=== PATIENT | female | born 1965 | race Caucasian/White ===

== ENCOUNTER → 2018-01-30 | Outpatient (CLI) | payer BC ==
[2014-07-12 16:14] VITALS: BMI 38.8
[~2018-01-30] MED LIST: AMIT-106 PO; ASPI-719 PO; ASPI-757 PO; BIS10S PR; BUP75 PO; BUPR-127 PO; BUPROPION; CEL100 PO; CELE-1 PO; CEP500 PO; CHOL100052 PO; CYC10 PO; CYCL10TA29 FT; CYCL10TA29 PO; DIAZ2TAB74 PO; DIC50 PO; ERGO400T9 PO; FERR-1 PO; FISH OIL1 CAP PO; FLUO40CA70 PO; FLUO40CA76 PO; GAB300 PO; HYDR-2954 PO; HYDR-3078 PO; HYDR-6016 PO; HYDR-653 PO; HYDR-654 PO; IBU800 PO; IBUP600T22 PO; KET10 PO; LACTAID9000 UNIT PO; LANS30CA70 PO; LEVO750T25 PO; LOR10/325 PO; LOR5/325 PO; LOR7.5/325 PO; LORITAB; MED10 PO; MELO-205 PO; METO-259 PO; METO25TA91 PO; METO50TA19 PO; MID PO; MOM PO; MULT-1027 PO; MULT-912 PO; NAP250 PO; NAPR500T75 PO; NIA500 PO; NIAC100040 PO; NIACIN PO; OMEP-153 PO; ONDA4TAB PO; OSTEOBIFLEX; PARO40TA86 PO; PER PO; PRA20 PO; PRE10 PO; PROL80 PO; PROP40TA45 PO; ROS10 PO; SIMV-49 PO; TRA50 PO; TRAM-627 PO; VER100 PO; VITA100T4 PO; Xarelto PO; [UNRECOGNIZED DRUG - CODE] PO
--- NOTE | 2018-01-30 09:32 | RADIOLOGY IMAGING REPORT ---
FACILITY: [facility] PATIENT NAME: Mary Ann Paz : 1965 MR: [id number] V: [id number] EXAM DATE: ORDERING PHYSICIAN: DORENE KEENE TECHNOLOGIST: Location: [facility] [place] Patient: Mary Ann Paz : 1965 Visit/Account:[id number] Date of Sevice: 01/30/2018 AP pelvis, one view, and left hip, one view. HISTORY: Fell off chair. COMPARISON: None. Mild sclerosis is present along the pubic symphysis. The bony pelvis is otherwise unremarkable. The h ips are normally aligned. No joint space narrowing. The sacroiliac joints and pubic symphysis are oth erwise unremarkable. No acute fractures are identified. IMPRESSION: Negative for acute bony abnormality. Report Dictated By: Taran Duarte MD at 01/30/2018 9:25 AM Report E-Signed By: Taran Duarte MD at 01/30/2018 9:28 AM WSN:[id number]
== END ==
LOC: RAD 08:35
PROVIDERS: ATTEND Nurse Practitioner Family
DX: M25.552 Pain in left hip (principal); W19.XXXA Unspecified fall, initial encounter

== ENCOUNTER 2018-02-25 09:51 | Outpatient (RCR) | payer BC ==
[2014-07-12 16:14] VITALS: BMI 38.8
== END 2018-04-01 ==
LOC: EDSTATUS 09:51 → DIET 09:51
PROVIDERS: ATTEND Nurse Practitioner Family
DX: Z02.9 Encounter for administrative examinations, unspecified (principal)